=== PATIENT | male | born 1985 | race Caucasian/White ===

== ENCOUNTER 2016-09-11 12:50 | Emergency (ER) | payer OTHER ==
[2016-09-11] MEDS ORDERED: HYDROCODONE/APAP 5/325 TAB ONE (13:39)
[2016-09-11] MEDS ORDERED: IBUPROFEN 600 MG TAB PO ONE ×2 (13:39→13:44)
[2016-09-11] MEDS ORDERED: HYDROCODONE/APAP 5/325 TAB PO ONE (13:44)
--- NOTE | 2016-09-11 14:29 | EDPHY ---
H & P Smoking Status: Never smoked Time Seen by Provider: 09/11/16 13:32 HPI/ROS: CHIEF COMPLAINT: Left ankle injury HISTORY OF PRESENT ILLNESS: 31-year-old male presents to the emergency department by private vehicle with injury to the left ankle. The patient was bouldering and fell approximately 5 feet landing on the side a rock. The patient complains of isolated pain to the left ankle. He denies hitting his head or losing consciousness. He is unable to bear weight secondary to pain. Denies any other trauma or injury. ROS: Denies pain in the left foot, left calf, left knee. (Natividad Krishnamurthy) Past Medical/Surgical History: Negative (Natividad Krishnamurthy) Social History: Single and lives in [place] (Natividad Krishnamurthy) Physical Exam: On examination the patient has swelling noted to the medial lateral aspect of the left ankle. He has reproducible pain with palpation to the medial malleolus. Limited dorsiflexion secondary to pain. Nontender to palpate the left foot. Nontender to palpate left calf or left knee. Normal sensation to light touch with normal 2 point discrimination. Strong dorsalis pedis pulse on the dorsal aspect of the left foot. (Natividad Krishnamurthy) Constitutional: Initial Vital Signs Temperature (C) 36.3 C 09/11/16 13:10 Heart Rate 82 09/11/16 13:10 Respiratory Rate 16 09/11/16 13:10 Blood Pressure 123/69 H 09/11/16 13:10 O2 Sat (%) 94 09/11/16 13:10 O2 Delivery Mode Room Air Allergies/Adverse Reactions: No Known Allergies Allergy (Unverified 09/11/16 13:16) Home Medications: Medication Instructions Recorded oxyCODONE/APAP 5/325 [Percocet 1 - 2 tab PO Q4-6PRN PRN #15 tab 09/11/16 5/325] MDM/Departure - MDM Diagnostics: X-rays of the left ankle reveal fracture to the medial malleolus which is mildly displaced and comminuted. This is reviewed by myself and the PAC system. Radiology interpretation to follow. (Natividad Krishnamurthy) Procedures: Patient was placed in Falk boot and examined post application in good placement with normal CLOTH HAND. He was also given crutches to be nonweightbearing. ( Natividad Krishnamurthy) Medications Given: Discontinued Medications Acetaminophen/Hydrocodone Bitart ([place] 5/325) 1 tab PO EDNOW ONE Stop: 09/11/16 13:45 Last Admin: 09/11/16 13:49 Dose: 1 tab Ibuprofen (Motrin) 600 mg PO EDNOW ONE Stop: 09/11/16 13:45 Last Admin: 09/11/16 13:49 Dose: 600 mg ED Course/Re-evaluation: 31 year male presents with left ankle injury. X-rays reveal comminuted, mildly displaced left medial malleolar fracture. The patient was placed in a Falk boot and given crutches. He will be nonweightbearing. Lives in [place] and wishes to follow up with orthopedic physician in [place] this week. He was given copies of his x-rays. (Natividad Krishnamurthy) I did not see this patient while he was in the emergency department. I did review his x-rays with the PA. However I did discussed patient's care while the patient was in the department. I agree with treatment plan and management ( Calixto Summers) - Depart Disposition: Home, Routine, Self-Care Clinical Impression: Closed left ankle fracture Condition: Good Instructions: Ankle Fracture (ED) Additional Instructions: Falk boot. Use crutches, do not weightbear on your left ankle. Ibuprofen 600 mg every 8 hours as needed for pain. Percocet for severe pain as directed. Follow up with orthopedic surgeon this week to recheck. Prescriptions: oxyCODONE/APAP 5/325 [Percocet 5/325] 1 - 2 tab PO Q4-6PRN PRN #15 tab PRN Reason: For Moderate To Severe Pain Referrals: Cherry Denton MD [Medical Doctor] - 2-3 days, call for appt. (Orthopedic surgeon on-call)
[2016-09-11 14:53] VITALS: BP 114/65; PULSE 64; RESP 20; TEMP 97.9; O2SAT 92
== END 2016-09-11 14:50 | disposition home or self-care (01) ==
DX: S82.62XA Displaced fracture of lateral malleolus of left fibula, initial encounter for closed fracture (principal); W17.89XA Other fall from one level to another, initial encounter
CPT/HCPCS: L4386